=== PATIENT | male | born 1945 | race Caucasian/White ===

== ENCOUNTER 2017-06-20 18:22 | Observation (INO) | payer MEDICARE, OTHER ==
[2017-06-20 20:20] LABS: Troponin I Less than 0.010 ng/mL (< 0.028)
[2017-06-20] MEDS ORDERED: hydrALAZINE 20 MG/ML VIAL SLOW IVP PRN (20:39)
[2017-06-20] MEDS ORDERED: Dextrose 50% Abboject 50 ML SYRINGE SLOW IVP PRN (20:39)
[2017-06-20] MEDS ORDERED: HumaLOG 300 UNITS/3 ML VIAL SC PRN (20:39)
[2017-06-20] MEDS ORDERED: Dextrose 5% in Water 1,000 ML IV PRN (20:39)
[2017-06-20] MEDS ORDERED: Acetaminophen 325 MG TAB PO PRN (20:39)
[2017-06-20] MEDS ORDERED: Ondansetron HCl/PF 4 MG/2 ML Vial IVP PRN (20:55)
[2017-06-20] MEDS ORDERED: Ondansetron ODT 4 MG TAB SL PRN (20:55)
[2017-06-20 20:57] VITALS: BMI 25.1
[2017-06-20 21:33] LABS: Magnesium 1.9 mg/dL (1.6-2.6)
[2017-06-20] MEDS ORDERED: Insulin Detemir 100 UNITS/ML 30 UNITS in Pre-Filled Syringe 1 EACH SC SCH (21:45)
[2017-06-20 23:03] LABS: Troponin I Less than 0.010 ng/mL (< 0.028)
--- NOTE | 2017-06-20 23:08 | HP-2 ---
CODE STATUS: FULL CODE. PRIMARY CARE PHYSICIAN: Gama. ATTENDING: Danielle Reynoso MD RESIDENT: Boy Thornton MD HISTORIAN: Patient. CHIEF COMPLAINT: Weakness and dizziness. HISTORY OF PRESENT ILLNESS: Storm Welch is a 71-year-old man with past medical history of type 2 diabetes mellitus and hypertension who presents as a transfer from [place] for TIA workup. Last night while sitting and watching TV, he had sudden onset dizziness. States that he felt like the room was spinning. He had associated clamminess and diaphoresis, but no chest pain, palpitations, syncope, dyspnea, or tinnitus. He tried to stand up and walk, but he felt like his whole body was "rubbery." He felt very weak over his whole body. No focal weakness. Symptoms lasted about 30 minutes and completely resolved. He went to sleep last night and woke up this morning and had a headache, but he had no other symptoms or recurrence of any of the symptoms from last night. He decided to go to the [place] ER because he could not figure out what caused the symptoms. In the ER, he was given aspirin. PAST MEDICAL HISTORY: 1. Hypertension. 2. Type 2 diabetes mellitus. PAST SURGICAL HISTORY: 1. Nephrectomy, status post renal cell carcinoma in 1994. 2. Appendectomy. 3. Tonsillectomy. 4. Cholecystectomy. ALLERGIES: No known drug allergies. MEDICATIONS: 1. Lisinopril 20 mg p.o. daily. 2. Metformin 1000 mg p.o. 3. Aspirin 325 mg p.o. b.i.d. 4. Tramadol 50 mg p.o. 5. Methocarbamol 500 mg p.o. SOCIAL HISTORY: The patient is a [id number] smoker. He denies any alcohol or drug use. REVIEW OF SYSTEMS: Twelve point review of systems including general, eyes, ENT , respiratory, CV, GI, , skin, musculoskeletal, neuro, and psych were all negative with the exception of vision changes and global weakness and symptoms otherwise stated in HPI. PHYSICAL EXAMINATION: VITAL SIGNS: Blood pressure 166/107, pulse 89, respiratory rate 18, T-max 98.4 , pulse ox 98% on room air, current weight is 86 kilograms. GENERAL: The patient is awake, alert, and oriented x4, in no acute distress. Well-developed, well-nourished, and appropriately interactive. EYES: Pupils equal, round, and reactive to light and accommodation. Extraocular muscles are intact. Conjunctivae within normal limits. ENT: Tympanic membranes pearly [place] without bulging or erythema. Nasal mucosa and oropharynx within normal limits. NECK: Supple, without lymphadenopathy, thyromegaly, or carotid bruits. CARDIOVASCULAR: Regular rate and rhythm, 2/6 systolic murmur. No gallops. Radial and pedal pulses equal bilaterally. RESPIRATORY: Normal effort. No retractions. LUNGS: Clear to auscultation bilaterally. SKIN: Warm and dry without cyanosis or lesions. ABDOMEN: Soft, nontender, bowel sounds x4. No masses or distention. He does have a ventral hernia that is reducible. EXTREMITIES: No clubbing, cyanosis, or edema. MUSCULOSKELETAL: Structure and tone within normal limits. Full range of motion. Muscle strength 5/5. NEUROLOGIC: No focal deficits. Sensation within normal limits. Cranial nerves intact. GCS 15. PSYCHIATRIC: Appropriate. LABORATORY AND DIAGNOSTIC DATA: White blood cell count 13.9, hemoglobin 16.5, hematocrit 48.6, platelets 319, 60% neutrophils. Sodium 139, potassium 4.5, chloride 101, carbon dioxide 21, BUN 11, creatinine 0.94, glucose 199, calcium 9.4, total protein 6.9, albumin 4.3, total bilirubin 0.3, AST 11, ALT 15, alkaline phosphatase 91. PT 13.0, INR 1.0, PTT 26.0. Hemoglobin A1c was 7.4. CK 45, CK-MB 1.7, troponin less than 0.01. BNP 15.1. EKG showed sinus rhythm with first degree AV block, right bundle branch block, and left fascicular block. Chest x-ray showed no acute cardiopulmonary findings. Brain CT showed no acute findings. ASSESSMENT AND PLAN: A 71-year-old man with past medical history of type 2 diabetes, hypertension, and [id number]-ojho smoking history who presented after 30 minutes of vertigo and weakness. 1. Transient ischemic attack, suspected: Considering posterior/cerebellar. Admit to stroke arms. Brain CT and chest x-ray were negative. Cardiac enzymes were negative. We will check brain MRI, transthoracic echocardiograph, and carotid Dopplers. Symptoms have completely resolved and there has been no recurrence. We will continue trending cardiac enzymes. Consider complex migraine. 2. Presyncope: likely secondary to #1. Symptoms of vertigo and weakness, patient did not lose consciousness. 3. Heart Block: EKG showed sinus rhythm with RBBB and left fascicular block. Continuous cardiac monitoring for at least 24 hours. Cardiac Enzymes negative thus far. Check Echo. 4. Type 2 diabetes: Continue metformin. Start sliding scale insulin, Accu- Cheks a.c. and at bedtime. Hemoglobin A1c was 7.4 5. Hypertension: Blood pressure was 166/107 here. The patient states that this is higher than his normal. We will continue his normal dose of lisinopril and add hydrochlorothiazide and monitor his blood pressures closely. 6. Heart murmur. Patient states that he has had this since childhood. Echocardiogram was ordered. 7. Activity: Ad gerardo. 8. Diet: Heart healthy. 9. Deep venous thrombosis prophylaxis: Sequential compression device and Lovenox. 10. Code status: FULL. DISPOSITION AND LENGTH OF HOSPITAL STAY: One day. Symptomatic medication will be provided. History and physical exam as well as management discussed with Dr. Danielle Reynoso. MICHELE
[2017-06-21 05:09] LABS: #Basophils 0.1 thou/uL (0.0-0.2); #Eosinphils 0.9 thou/uL (0.0-0.7); #Lymphocytes 2.7 thou/uL (1.20-3.40); #Monocytes 1.2 thou/uL (0.11-0.59); %Basophils 0.8 % (0.0-1.0); %Eosinophils 8.7 % (0.0-10.0); %Lymphocytes 24.3 % (21.0-51.0); %Monocytes 10.8 % (0.0-10.0); Anion Gap 9 mmol/L (10-20); BUN (Urea Nitrogen) 13 mg/dL (8.4-25.7); Calc. Creatinine Clearance 97 mL/min (70-130); Calcium 9.3 mg/dL (7.8-10.44); Carbon Dioxide 28 mmol/L (23-31); Chloride 103 mmol/L (98-107); Cholesterol 154 mg/dl (< 200 Desired); Estimated GFR-MDRD Greater than 90; Hematocrit 45.8 % (42.0-52.0); LDL Cholesterol, Calculated 102 mg/dL; Mean Platelet Volume 8.6 fL (7.4-10.4); Red Blood Cell (RBC) Count 4.58 mill/uL (4.70-6.10); White Blood Cell (WBC) Count 10.9 thou/uL (4.8-10.8)
[2017-06-21] MEDS ORDERED: metFORMIN 500 MG TAB PO SCH (08:00)
[2017-06-21] MEDS ORDERED: Aspirin 81 mg Enteric Coated Tablet PO SCH (09:00)
[2017-06-21] MEDS ORDERED: Enoxaparin Sodium 40 MG/0.4 ML SYRINGE SC SCH (09:00)
[2017-06-21] MEDS ORDERED: Insulin Detemir 100 UNITS/ML 30 UNITS in Pre-Filled Syringe 1 EACH SC SCH (09:00)
[2017-06-21] MEDS ORDERED: Lisinopril/Hydrochlorothiazide 20 mg/12.5 mg Tablet PO SCH (09:00)
[2017-06-21] MEDS ORDERED: Lisinopril 20 MG TAB PO SCH (09:00)
--- NOTE | 2017-06-21 09:27 | PDOC.FM ---
- Subjective Subjective: Patient has no complaints. He denies any weakness, numbness, vision changes, dizziness, headache, difficulty walking. He is tolerating PO well. - Objective MAR Reviewed: Yes Vital Signs & Weight: Vital Signs (12 hours) Temp Pulse Resp BP BP Pulse Ox 06/21/17 08:00 98.6 F 69 20 120/75 96 06/21/17 03:23 97.9 F 85 18 131/74 96 06/21/17 00:28 97.8 F 74 18 148/74 H 99 Weight Weight 81.647 kg I&O: 06/20/17 06/21/17 06/22/17 06:59 06:59 06:59 Intake Total 480 Balance 480 Result Diagrams: 06/21/17 03:58 06/21/17 03:58 <Rubina Frances - Last Filed: 06/21/17 09:25> - Objective Vital Signs & Weight: Vital Signs (12 hours) Temp Pulse Resp BP BP Pulse Ox 06/21/17 11:31 98.4 F 75 18 131/75 96 06/21/17 10:04 131/74 06/21/17 08:10 98.6 F 69 20 06/21/17 08:00 98.6 F 69 20 120/75 96 06/21/17 03:23 97.9 F 85 18 131/74 96 06/21/17 00:28 97.8 F 74 18 148/74 H 99 Weight Weight 81.647 kg I&O: 06/20/17 06/21/17 06/22/17 06:59 06:59 06:59 Intake Total 480 Balance 480 Result Diagrams: 06/21/17 03:58 06/21/17 03:58 <Danielle Reynoso - Last Filed: 06/21/17 11:51> Phys Exam - Physical Examination Constitutional: NAD HEENT: PERRLA, moist MMs, oral pharynx no lesions Neck: no nodes, supple Respiratory: no wheezing, no rales, no rhonchi, clear to auscultation bilateral Cardiovascular: RRR, no rub 3/6 systolic murmur Musculoskeletal: no edema, pulses present Neurological: non-focal, normal sensation, moves all 4 limbs CN II-XII intact, 5/5 muscle strength bilateral upper and lower extremities Psychiatric: normal affect, A&O x 3 <Rubina Frances - Last Filed: 06/21/17 09:25> Dx/Plan (1) TIA (transient ischemic attack) Status: Acute QualifierTitle: Transient cerebral ischemia type: unspecified Qualified Code(s): G45.9 - Transient cerebral ischemic attack, unspecified Plan: Patient has symptoms suspicious of a TIA that lasted only [address] was negative FLP - ASCVD risk 40.2% -MRI brain -Carotid dopplers -Echo -Aspirin -Will start statin (2) Diabetes mellitus type 2, insulin dependent Code(s): E11.9 - TYPE 2 DIABETES MELLITUS WITHOUT COMPLICATIONS; Z79.4 - RECYCLING MANAGER (CURRENT) USE OF INSULIN Status: Acute Plan: Continue levemir and metformin Accuchecks ACHS CC diet (3) Heart block Code(s): I45.9 - CONDUCTION DISORDER, UNSPECIFIED Status: Acute Plan: 1st degree AV block, RBBB, L fascicular block No comparison from prior EKG's -monitor on tele (4) Hypertension Code(s): I10 - ESSENTIAL (PRIMARY) HYPERTENSION Status: Acute QualifierTitle: Hypertension type: essential hypertension Qualified Code( s): I10 - Essential (primary) hypertension Plan: Continue home meds <Rubina Frances - Last Filed: 06/21/17 09:25> Attending Addendum - Attending Addendum I personally evaluated the patient and discussed the management with Dr. Thornton and Juan Daniel I agree with the History, Examination, Assessment and Plan documented above with any addition or exceptions noted below- Briefly, this is a 71 year old gentleman with h/o HTN and type 2 DM who presented with episode of generalized weakness that lasted 30 minutes on Thursday evening. Checked his BP and BG which were normal. He went to sleep and in the morning awoke with a headache which was unusual for him. Went to ER for further evaluation. No further episodes of weakness. A/p: 1) Generalized weakness- CT brain negative; normal labs; Carotids negative; Echo and brain MRI pending. <Danielle Reynoso - Last Filed: 06/21/17 11:51>
--- NOTE | 2017-06-21 09:51 | ULT ---
CAROTID DOPPLER: TECHNIQUE: Ultrasound Doppler study is performed of the extracranial carotid arteries. Color Doppler with spect ral analysis and velocity recordings obtained. HISTORY: TIA. FINDINGS: Ultrasound images show diffuse echogenic plaque throughout both common carotid and internal carotid a rteries. Velocities in internal carotid arteries are normal with highest velocity on the right recor ded at 57 cm/s and the highest velocity on the left recorded at 7 cm/s. Common carotid velocity on t he right upper normal at 122. Vertebrals show antegrade flow. IMPRESSION: Prominent echogenic plaque throughout both carotid systems. No evidence of hemodynamically significa nt stenosis by velocity recording. POS: [facility]
[2017-06-21 11:32] VITALS: BP 131/75; TEMP 98.4
--- NOTE | 2017-06-21 13:18 | MRI ---
MRI BRAIN WITHOUT CONTRAST: TECHNIQUE: Multiplanar, multisequential imaging of brain obtained. HISTORY: TIA. FINDINGS: Mild cortical atrophy. Mild chronic ischemic white matter change. No evidence of restricted diffusion. No evidence of acute or subacute infarct identified. No mass o r edema. The intracranial internal carotid arteries and proximal cerebral arteries show flow voids. Basilar a rtery is patent. IMPRESSION: Mild cortical atrophy with mild chronic ischemic white matter change. No acute process. POS: [facility]
[2017-06-21] MEDS ORDERED: Atorvastatin Calcium 40 MG TAB PO SCH (21:00)
--- NOTE | 2017-06-22 01:09 | DIS-2 ---
DATE OF ADMISSION: 06/20/2017 DATE OF DISCHARGE: 06/21/2017 ADMITTING RESIDENT: Boy Thornton M.D. DISCHARGE RESIDENT: Rubina Frances M.D. ATTENDING: Danielle Reynoso M.D. CONSULTS: None. PROCEDURES: None. IMAGIN. Carotid Doppler ultrasound showed prominent echogenic plaque throughout both carotid systems, but no evidence of hemodynamically significant stenosis by velocity recording. 2. Brain MRI showed mild cortical atrophy with mild chronic ischemic white matter change, no acute p rocess and in the [place] ER, CT head showed no acute finding. 3. Chest x-ray: Lungs are clear. Cardiomediastinal silhouette is normal. No definite acute osseou s abnormality is evident. PRIMARY DIAGNOSES: 1. Transient ischemic attack. 2. Presyncope. 3. Heart block. 4. Systolic heart murmur. SECONDARY DIAGNOSES: 1. Diabetes type 2. 2. Hypertension. DISCHARGE MEDICATIONS: 1. Aspirin 81 mg p.o. daily. 2. Atorvastatin 40 mg p.o. at bedtime. 3. Levemir 30 units subcu b.i.d. 4. Lisinopril 20 mg p.o. b.i.d. 5. Metformin 1000 mg p.o. b.i.d. 6. Methocarbamol 1000 mg p.o. q.i.d. p.r.n. for muscle spasms. 7. Tramadol 50 mg p.o. q.6 hours p.r.n. pain. DISCONTINUED MEDICATIONS: None. HISTORY OF PRESENT ILLNESS AND HOSPITAL COURSE: This is a 71-year-old gentleman who presented to the [facility] ER due to an episode of a sudden onset dizziness, diaphoresis, and whole body weakness with no focal symptoms that lasted just 30 minutes followed by headache the next morning. The patien t has an ASCVD 10-year risk of 40%. His initial head CT was negative. His EKG showed first degree h eart block, right bundle branch block, and left fascicular block. There is no prior EKG to compare t his to. The patient's symptoms are completely resolved by the time he was admitted, so workup for TI A was done at this time. All the studies were negative with the exception of the echocardiogram has not been read at this time, but the patient will be notified of the results by telephone. The patien t had a fasting lipid panel done that showed triglycerides of 106, total cholesterol 154, LDL 102, HD L 31. The patient was started on atorvastatin due to his risk and was counseled on smoking cessation . Stroke warning signs were discussed with the patient and his and the importance of going to [facility] quickly. DISPOSITION: Stable. DISCHARGE INSTRUCTIONS: 1. Location: Home. 2. Diet: Heart healthy. 3. Activity: As tolerated. 4. Follow up with Dr. Nichole within 10 days.
== END 2017-06-21 15:50 | disposition home or self-care (01) ==
LOC: ERS 18:22 → 2SW 19:30
PROVIDERS: ADMIT Family Medicine; ATTEND Family Medicine
DX: G45.9 Transient cerebral ischemic attack, unspecified (principal); R55 Syncope and collapse; I45.9 Conduction disorder, unspecified; R01.1 Cardiac murmur, unspecified; E11.9 Type 2 diabetes mellitus without complications; I10 Essential (primary) hypertension; F17.210 Nicotine dependence, cigarettes, uncomplicated; Z79.4 Long term (current) use of insulin; Z79.82 Long term (current) use of aspirin; Z79.899 Other long term (current) drug therapy; Z90.5 Acquired absence of kidney; Z90.49 Acquired absence of other specified parts of digestive tract; Z90.89 Acquired absence of other organs; Z85.528 Personal history of other malignant neoplasm of kidney
CPT/HCPCS: 70551; 80048; 80061; 82962 ×2; 83735; 84100; 84484; 85025; 93005; 93306; 93880; 96372; 99285; G0378; 36415; 36416; A4216; J1650; J1815

== ENCOUNTER 2017-07-01 11:49 | Emergency (ER) | payer MEDICARE, OTHER ==
--- NOTE | 2017-07-01 13:02 | RAD ---
PA AND LATERAL CHEST: History: Cough. FINDINGS: The heart size is normal. The lungs are expanded without focal areas of consolidation, pneumothorax, or pleural effusions. There are degenerative changes in the spine. IMPRESSION: No radiographic evidence of acute cardiopulmonary process. POS: [facility]
[2017-07-01 13:37] LABS: #Lymphocytes 0.4 thou/uL (1.20-3.40); #Neutrophils 9.5 thou/uL (1.40-6.50); %Basophils 0.2 % (0.0-1.0); %Eosinophils 0.3 % (0.0-10.0); %Lymphocytes 3.9 % (21.0-51.0); Mean Platelet Volume 9.1 fL (7.4-10.4); Red Blood Cell (RBC) Count 4.85 mill/uL (4.70-6.10); White Blood Cell (WBC) Count 10.9 thou/uL (4.8-10.8)
[2017-07-01 13:59] LABS: Lactic Acid - Sepsis 2.1 mmol/L (0.5-2.2)
[2017-07-01 14:03] LABS: ALT (SGPT) 18 U/L (8-55); AST (SGOT) 27 U/L (5-34); Alkaline Phosphatase 79 U/L (40-150); Anion Gap 15 mmol/L (10-20); BUN (Urea Nitrogen) 15 mg/dL (8.4-25.7); Bilirubin, Total 0.2 mg/dL (0.2-1.2); Calc. Creatinine Clearance 0 mL/min (70-130); Calcium 9.2 mg/dL (7.8-10.44); Carbon Dioxide 23 mmol/L (23-31); Chloride 94 mmol/L (98-107); Estimated GFR-MDRD 72; Globulin 2.5 g/dL (2.4-3.5); Protein, Total 6.6 g/dL (5.8-8.1)
[2017-07-01] MEDS ORDERED: Oseltamivir 75 MG CAP PO SCH (14:15)
== END 2017-07-01 14:52 | disposition home or self-care (01) ==
LOC: ERS 11:49
DX: J11.1 Influenza due to unidentified influenza virus with other respiratory manifestations (principal); E78.5 Hyperlipidemia, unspecified; E11.9 Type 2 diabetes mellitus without complications; I10 Essential (primary) hypertension; F17.210 Nicotine dependence, cigarettes, uncomplicated
CPT/HCPCS: 36415; 71020; 80053; 83605; 85025; 87040; 99406

== ENCOUNTER 2017-12-24 10:15 | Outpatient (CLI) | payer MEDICARE ==
--- NOTE | 2017-12-24 13:59 | PET ---
PET CT: HISTORY: 72-year-old male mesenteric lymphadenopathy on recent CT scan. Patient has a history of renal carcino ma. TECHNIQUE: PET scanning with CT attenuation correction was performed from the vertex through the feet following the intravenous administration of 12 mCi [id number] in the right hand. CORRELATION: CT chest, abdomen, and pelvis dated 12/03/17 from [facility]. COMPARISON: No previous PET scans are available for comparison. FINDINGS: There are hypermetabolic mesenteric lymph nodes with a maximum SUV of 4.8 in the inferiormost lymph n ode on the left. No hypermetabolic [place]in[place]/paraaortic lymph nodes are seen. No michelle hypermetabolism is seen in the cervical, mediastinal, hilar, axillary, or pelvic lymph nodes . No hypermetabolic pulmonary nodules, liver, adrenal, or skeletal lesions are seen. There is physiologic activity in the brain, GI and tracts. A solitary right kidney is present, exc reting into the right ureter and urinary bladder. 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 POS: [facility]
== END 2017-12-24 10:16 | disposition home or self-care (01) ==
LOC: PET 10:15
PROVIDERS: ATTEND Internal Medicine
DX: R93.5 Abnormal findings on diagnostic imaging of other abdominal regions, including retroperitoneum (principal)
CPT/HCPCS: 78816; A9552